=== PATIENT | male | born 1990 | race Caucasian/White ===

== ENCOUNTER 2019-11-02 13:17 | Emergency (ER) | payer MEDICAID, OTHER ==
[~2019-11-02] VITALS: Ht 177.8 cm; Wt 72.7 kg
[~2019-11-02 13:17] MED LIST: NO HOME MEDS
[2019-11-02] MEDS ORDERED: epiNEPHrine 1 mg/ml inj SQ STA ×2 (13:31→14:21)
[2019-11-02] MEDS ORDERED: diphenhydrAMINE 50 mg/ml inj IV ONE ×2 (13:35→14:50)
[2019-11-02] MEDS ORDERED: normal saline 1000ML IV soln IVB ONE (13:35)
[2019-11-02] MEDS ORDERED: tranexamic acid 100mg/ml inj. IV ONE (13:35)
[2019-11-02] MEDS ORDERED: famotidine/PF 10 mg/ml inj IV ONE ×2 (13:35→13:45)
[2019-11-02] MEDS ORDERED: diphenhydrAMINE 50 mg/ml inj ONE ×2 (13:45→15:05)
[2019-11-02] MEDS ORDERED: epiNEPHrine 0.1mg/ml 10ml syringe ONE (13:45)
[2019-11-02] MEDS ORDERED: tranexamic acid inj. 730 MG in normal saline 100ml IV soln 100 ML IV ONE (13:50)
[2019-11-02] MEDS ORDERED: EPIN0.3P3 IM (14:08)
[2019-11-02 14:30] VITALS: BP 137/68
[2019-11-02] MEDS ORDERED: epiNEPHrine 1 mg/ml inj ONE (14:39)
== END 2019-11-02 15:18 | disposition home or self-care (01) ==
LOC: ER 13:17
DX: T63.441A Toxic effect of venom of bees, accidental (unintentional), initial encounter (principal); T78.40XA Allergy, unspecified, initial encounter; F12.90 Cannabis use, unspecified, uncomplicated; Z79.899 Other long term (current) drug therapy; Y92.89 Other specified places as the place of occurrence of the external cause
CPT/HCPCS: 96365; 96372; 96375; 96376; 99284; J0171; J1200; J3490; J7030

== ENCOUNTER 2020-01-10 00:31 | Emergency (ER) | payer OTHER ==
[~2020-01-10] VITALS: Ht 172.7 cm; Wt 68.2 kg
[~2020-01-10 00:31] MED LIST changes: +EPIN0.3P3 IM
--- NOTE | 2020-01-10 00:47 | NUR ---
pt aggressive with staff. pt reports pain all over. md aware of neck pain, in addition to all over pain. no c collar needed per md. md at bedside for assessment. pt uncooperative with assessment. pd outside. pt provided urine sample.
--- NOTE | 2020-01-10 01:36 | NUR ---
Pt. continues to be uncooperative. He refused to stay still during CT. Pt. returned back to ED bed 14 yelling at staff and being non-compliant. Bilat ankle restraints placed in addition to handcuffs. [employer] and [facility] at bedside.
[2020-01-10] MEDS ORDERED: propofol 10mg/ml 20ml vial IV ONE (01:50)
[2020-01-10] MEDS ORDERED: propofol 1000mg/100ml bottle 100 ML IV ONE (01:57)
--- NOTE | 2020-01-10 02:07 | NUR ---
diprovan 20 ml vial ordered, but unable to obtain from [employer]. Diprovan in 100 ml vial available for override used.
--- NOTE | 2020-01-10 02:12 | NUR ---
returned from lunch. pt at end of mod sedation procedure for ct scan. pt returned to ed room 14. recovery monitoring in process.
--- NOTE | 2020-01-10 02:29 | NUR ---
patient a/0x4. pt back to baseline. pt aggressive with security and unpleasant with staff.
--- NOTE | 2020-01-10 02:45 | NUR ---
pt yelling at md, security and furnace operator [employer]. pt trying to fall off end of bed. pt puts head in between bed rails. patient is becoming a danger to self. refuses to follow instructions for safety. md aware.
[2020-01-10] MEDS ORDERED: diphenhydrAMINE 50 mg/ml inj IV ONE (02:50)
[2020-01-10] MEDS ORDERED: LORazepam 2 mg/ml vial IV ONE (02:50)
[2020-01-10] MEDS ORDERED: haloperidol lactate 5mg/ml inj IM ONE (02:55)
[2020-01-10] MEDS ORDERED: normal saline 1000ml 1,000 ML IV ONE (02:55)
--- NOTE | 2020-01-10 03:21 | NUR ---
pt thrashing around in bed, and yelling. multiple attempts to deescalate pt, and create a therapeutic environment for care. pt continues to escalate and harass staff.
--- NOTE | 2020-01-10 03:31 | NUR ---
pt assisted to use urinal with help of security and staff. pt beginning to calm down.
--- NOTE | 2020-01-10 03:32 | NUR ---
security monitoring pt outside of room. He does continue to yell, however is no longer attempting to bite at iv tubing.
--- NOTE | 2020-01-10 04:49 | NUR ---
pt sleeping. placed back on monitoring devices.
--- NOTE | 2020-01-10 06:40 | NUR ---
Pt resting comfortably with eyes closed on L side. Respirations equal and nonlabored.
[2020-01-10 09:39] VITALS: BP 118/78
== END 2020-01-10 09:54 | disposition home or self-care (01) ==
LOC: ER 00:31
DX: F10.129 Alcohol abuse with intoxication, unspecified (principal); F32.9 Major depressive disorder, single episode, unspecified; F12.90 Cannabis use, unspecified, uncomplicated; Z72.89 Other problems related to lifestyle; Z79.899 Other long term (current) drug therapy; V87.7XXA Person injured in collision between other specified motor vehicles (traffic), initial encounter; X58.XXXA Exposure to other specified factors, initial encounter; Y93.89 Activity, other specified; Y92.89 Other specified places as the place of occurrence of the external cause; Y99.8 Other external cause status; Y90.9 Presence of alcohol in blood, level not specified
CPT/HCPCS: 70450; 72125; 96361; 96372; 96374; 96375; 99285; J1200; J1630; J2060; J2704; J7030

== ENCOUNTER 2020-02-08 05:15 | Emergency (ER) | payer OTHER ==
[~2020-02-08] VITALS: Ht 180.3 cm; Wt 75.0 kg
[2020-02-08] MEDS ORDERED: ondansetron/PF 4mg/2ml inj IV ONE (05:35)
[2020-02-08] MEDS ORDERED: normal saline 1000ML IV soln IVB ONE (05:35)
[2020-02-08] MEDS ORDERED: pantoprazole 40 MG vial IV ONE (05:35)
[2020-02-08] MEDS ORDERED: NALO4SPR (06:19)
[2020-02-08 06:45] VITALS: BP 123/78
--- NOTE | 2020-02-08 06:46 | NUR ---
PT DOESNT WANT TO GO THRU THE TREATMENT PROGRAM BECAUSE HE STATES HE CANT AFFORD IT.
== END 2020-02-08 06:51 | disposition home or self-care (01) ==
LOC: ER 05:15
DX: T40.1X1A Poisoning by heroin, accidental (unintentional), initial encounter (principal); R41.82 Altered mental status, unspecified; R11.10 Vomiting, unspecified; F17.200 Nicotine dependence, unspecified, uncomplicated; F12.10 Cannabis abuse, uncomplicated; Y92.89 Other specified places as the place of occurrence of the external cause
CPT/HCPCS: 96361; 96374; 96375; 99284; C9113; J2405; J7030